=== PATIENT | female | born 1990 | race Caucasian/White ===

== ENCOUNTER 2017-10-01 17:07 | Emergency (ER) | END 2017-10-01 21:19 | disposition home or self-care (01) ==

== ENCOUNTER 2018-01-20 16:22 | Outpatient (CLI) | END 2018-01-20 18:59 | disposition home or self-care (01) ==

== ENCOUNTER 2018-02-17 11:56 | Outpatient (CLI) | END 2018-02-17 15:15 | disposition home or self-care (01) ==

== ENCOUNTER 2018-02-18 11:15 | Outpatient (CLI) | END 2018-02-18 13:22 | disposition home or self-care (01) ==

== ENCOUNTER 2018-03-03 11:46 | Outpatient (CLI) | payer OTHER ==
[~2018-03-03] VITALS: Ht 162.6 cm; Wt 93.0 kg
[~2018-03-03 11:46] MED LIST: FER325 PO; PNV11TAB PO
[2018-03-03 12:53] VITALS: Ht 162.6 cm; Wt 93.0 kg
[2018-03-03 12:54] VITALS: BP 118/80; PULSE 106; RESP 20
--- NOTE | 2018-03-03 15:19 | PN ---
Triage Information Date/Time Reason for visit: Elevated BP in clinic Weeks of Gestation 36 weeks /Para Diabetes: none Hypertention: none Objective Vital Signs Date Temp Pulse Resp B/P (MAP) Pulse Ox O2 O2 Flow FiO2 Time Delivery Rate 03/03/18 98.0 106 20 118/80 Room Air 12:54 (93) Heart Rate: 120's Heart Rate Comments Reactive Results/Medications Result Diagram: 03/03/18 1208 03/03/18 1208 Results 24 hrs Laboratory Tests Test 03/03/18 12:08 03/03/18 14:50 White Blood Count 10.1 Red Blood Count 3.76 L Hemoglobin 11.1 L Hematocrit 32.8 L Mean Corpuscular Volume 87.2 Mean Corpuscular Hemoglobin 29.5 Mean Corpuscular Hemoglobin Concent 33.8 Red Cell Distribution Width 14.1 Platelet Count 360 Mean Platelet Volume 8.3 Immature Granulocytes % 1.100 H Neutrophils % 67.7 Lymphocytes % 25.0 Monocytes % 4.7 Eosinophils % 1.0 Basophils % 0.5 Nucleated Red Blood Cells % 0.0 Immature Granulocytes # 0.110 H Neutrophils # 6.8 Lymphocytes # 2.5 Monocytes # 0.5 Eosinophils # 0.1 Basophils # 0.1 Nucleated Red Blood Cells # 0.0 Prothrombin Time 13.4 Prothrombin Time Ratio 1.0 INR International Normalized Ratio 1.01 Activated Partial Thromboplast Time 27.6 Fibrinogen 482.0 H Sodium Level 136 Potassium Level 4.0 Chloride Level 106 Carbon Dioxide Level 23 Anion Gap 7 Blood Urea Nitrogen 7 Creatinine 0.35 L Est Glomerular Filtrat Rate mL/min > 60 Glucose Level 87 Uric Acid 3.6 Calcium Level 9.3 Total Bilirubin 0.1 L Direct Bilirubin 0.00 Indirect Bilirubin 0.1 Aspartate Amino Transf (AST/SGOT) 14 L Alanine Aminotransferase (ALT/SGPT) 14 Alkaline Phosphatase 160 H Total Protein 6.8 Albumin 3.4 Globulin 3.40 H Albumin/Globulin Ratio 1.00 Urine Color YELLOW Urine Clarity CLEAR Urine pH 7.0 Urine Specific [place] 1.013 Urine Ketones TRACE A Urine Nitrite NEGATIVE Urine Bilirubin NEGATIVE Urine Urobilinogen NEGATIVE Urine Leukocyte Esterase NEGATIVE Urine Hemoglobin NEGATIVE Urine Glucose NEGATIVE Urine Total Protein NEGATIVE Disposition: Discharge Assessment/Plan No sign of preeclampsia REINA HAMILTON MD Mar 03, 2018 15:19
--- NOTE | 2018-03-03 15:36 | TRIAGE ---
OB Triage Datetime Report Generated by CPN: 03/03/2018 15:35 Datetime: 03/03/2018 12:48 Maternal Assessment Level of Consciousness: Fully Conscious DTR's/Clonus: DTRs 2+; No Clonus Headache: Denies Blurred Vision: No Respiratory Effort: Unlabored; Regular Rhythm; Equal Expansion Breath Sounds, Left: Clear and Equal Breath Sounds, Right: Clear and Equal Nausea/Vomiting: Denies RUQ Epigastric Pain: Denies Facial Edema: None Temperature Route: Axillary Fall Risk Assessment History of Falling: (0) No Secondary Diagnosis: (0) No Ambulatory Aid: (0) Bedrest/Nurse Assist IV Therapy: (0) No Gait: (0) Normal/Bedrest/Immobile Mental Status: (0) Oriented to Own Ability Fall Score: 0 Fall Risk Score Definition: No Risk: No action required Datetime: 03/03/2018 12:03 Maternal Assessment Level of Consciousness: Fully Conscious DTR's/Clonus: DTRs 2+ Headache: Denies Blurred Vision: No Nausea/Vomiting: Denies RUQ Epigastric Pain: Denies Facial Edema: None Labor Evaluation Frequency: none at this time Pattern: Normal: <= 5 Contractions in 10 Minutes Resting Tone [place]: Relaxed Heart Rate FHR Baseline Rate: 145 Monitor Mode: External US FHR Baseline Changes: No Baseline Change Variability: Moderate 6-25 bpm Accelerations: 15X15 Decelerations: None Category: Category I Pain Assessment Pain Scale: 0 Pain Presence: None/Denies Pain Goal: 0 Vaginal Exam Membrane Status: Intact Datetime: 03/03/2018 11:35 Time of Arrival: 03/03/2018 11:35 EGA: 36.3 Arrived By: Ambulatory Arrived From: Home Chief Complaint: elevated b/p in office Movement: Present Contractions: Denies/Absent Rupture of Membranes: Denies Vaginal Bleeding: None Vaginal Discharge: Denies Recent Sexual Intercouse: Denies Abdominal Trauma: Not Applicable Patient Complaints: None Initial Plan: efm,lab work and ob us Datetime: 02/18/2018 11:25 Fall Score: 0 Fall Risk Score Definition: No Risk: No action required Datetime: 02/18/2018 11:24 EGA: 34.4 Datetime: 02/17/2018 12:24 EGA: 34.3 Datetime: 02/17/2018 12:17 Fall Score: 0 Fall Risk Score Definition: No Risk: No action required Datetime: 01/20/2018 17:52 Fall Score: 0 Fall Risk Score Definition: No Risk: No action required Datetime: 01/20/2018 17:16 Fall Score: 0 Fall Risk Score Definition: No Risk: No action required Datetime: 01/20/2018 16:46 EGA: 30.3
== END 2018-03-03 15:30 | disposition home or self-care (01) ==
LOC: L-D 11:46 → OBT 11:46
PROVIDERS: ATTEND Obstetrics & Gynecology
DX: O26.893 Other specified pregnancy related conditions, third trimester (principal); R03.0 Elevated blood-pressure reading, without diagnosis of hypertension; Z3A.36 36 weeks gestation of pregnancy
CPT/HCPCS: 76818; 80053; 81003; 84560; 85025; 85384; 85610; 85730; Z7500; G0463

== ENCOUNTER 2018-03-21 09:53 | Inpatient (IN) | payer OTHER ==
[~2018-03-21] VITALS: Ht 162.6 cm; Wt 93.7 kg
[2018-03-21 09:58] VITALS: BP 111/76; PULSE 116; RESP 18; Ht 162.6 cm; Wt 93.7 kg
--- NOTE | 2018-03-21 12:39 | TRIAGE ---
OB Triage Datetime Report Generated by CPN: 03/21/2018 12:39 Datetime: 03/21/2018 12:18 Labor Evaluation Frequency: 0 Pattern: Normal: <= 5 Contractions in 10 Minutes Resting Tone [place]: Relaxed Heart Rate FHR Baseline Rate: 145 Monitor Mode: External US FHR Baseline Changes: No Baseline Change Variability: Moderate 6-25 bpm Accelerations: 15X15 Decelerations: None Category: Category I Datetime: 03/21/2018 11:10 Labor Evaluation Frequency: 0 Pattern: Normal: <= 5 Contractions in 10 Minutes Resting Tone [place]: Relaxed Heart Rate FHR Baseline Rate: 150 Monitor Mode: External US Variability: Moderate 6-25 bpm Accelerations: 15X15 Decelerations: Variable Category: Category II Datetime: 03/21/2018 10:10 Labor Evaluation Frequency: 0 Pattern: Normal: <= 5 Contractions in 10 Minutes Resting Tone [place]: Relaxed Heart Rate FHR Baseline Rate: 150 Monitor Mode: External US Variability: Moderate 6-25 bpm Accelerations: 15X15 Decelerations: None Category: Category I Datetime: 03/21/2018 10:09 Assessment Type: Triage Time of Arrival: 03/21/2018 09:50 EGA: 39.0 Arrived By: Ambulatory Arrived From: Home Chief Complaint: VAGINAL PRESSURE AND SOB Movement: Present Contractions: Denies/Absent Rupture of Membranes: Denies Vaginal Bleeding: None Vaginal Discharge: Denies Recent Sexual Intercouse: Denies Abdominal Trauma: Not Applicable Patient Complaints: Other Time Provider Notified: 03/21/2018 10:23 Provider Notified: dr dumont Initial Plan: NST Maternal Assessment Level of Consciousness: Fully Conscious DTR's/Clonus: DTRs 2+; No Clonus Headache: Denies Blurred Vision: No Respiratory Effort: Unlabored; Regular Rhythm; Equal Expansion Breath Sounds, Left: Clear and Equal Breath Sounds, Right: Clear and Equal Nausea/Vomiting: Denies RUQ Epigastric Pain: Denies Lower Extremities Edema: None Degree: None Upper Extremities Edema: None Degree: None Facial Edema: None Fall Risk Assessment History of Falling: (0) No Secondary Diagnosis: (0) No Ambulatory Aid: (0) Bedrest/Nurse Assist IV Therapy: (0) No Gait: (0) Normal/Bedrest/Immobile Mental Status: (0) Oriented to Own Ability Fall Score: 0 Fall Risk Score Definition: No Risk: No action required Datetime: 03/03/2018 12:48 Fall Score: 0 Fall Risk Score Definition: No Risk: No action required Datetime: 03/03/2018 11:35 EGA: 36.3 Datetime: 02/18/2018 11:25 Fall Score: 0 Fall Risk Score Definition: No Risk: No action required Datetime: 02/18/2018 11:24 EGA: 34.4 Datetime: 02/17/2018 12:24 EGA: 34.3 Datetime: 02/17/2018 12:17 Fall Score: 0 Fall Risk Score Definition: No Risk: No action required Datetime: 01/20/2018 17:52 Fall Score: 0 Fall Risk Score Definition: No Risk: No action required Datetime: 01/20/2018 17:16 Fall Score: 0 Fall Risk Score Definition: No Risk: No action required Datetime: 01/20/2018 16:46 EGA: 30.3
[2018-03-21] MEDS ORDERED: OXYTOCIN 30 UNITS/LR 500 ML IV SCH (13:30)
[2018-03-21] MEDS ORDERED: METHYLERGONOVINE 0.2 MG INJ IM PRN (13:30)
[2018-03-21] MEDS ORDERED: OXYTOCIN 30 UNITS/LR 500 ML IV PRN (13:30)
[2018-03-21] MEDS ORDERED: BUTORPHANOL 2 MG INJ IV PRN (13:30)
[2018-03-21] MEDS ORDERED: CARBOPROST 250 MCG INJ IM PRN (13:30)
[2018-03-21] MEDS ORDERED: LIDOCAINE 1% (MPF) 30 ML INJ INJ PRN (13:30)
[2018-03-21] MEDS ORDERED: MISOPROSTOL 200 MCG TAB PR PRN (13:30)
[2018-03-21] MEDS ORDERED: IBUPROFEN 600 MG TAB PO PRN (13:30)
[2018-03-21] MEDS: LACTATED RINGER'S 1,000 ML IV SCH ×3 (14:01→23:37)
[2018-03-21] MEDS: MISOPROSTOL 50 MCG CAPSULE PO SCH ×2 (16:15→22:01)
--- NOTE | 2018-03-21 19:27 | HP ---
Date/Time of Note Date/Time of Note DATE: 03/21/18 TIME: 19:24 OB - History Hx of Present Chief Complaint: pelvic pressure Estimated Due Date: Mar 28, 2018 : 2 Para: 1 Spontaneous : 0 Therapeutic : 0 Care: Good Care Ultrasounds: Normal mid trimester US Obstetrical Complications: None Medical Complications: None Past Family/Social History * Past Medical, Surgical, Family and Obstetric Histories reviewed from chart. GBS Status: Negative OB Admission Exam Vital Signs Vital Signs Vital Signs Date Temp Pulse Resp B/P (MAP) Pulse Ox O2 O2 Flow FiO2 Time Delivery Rate 03/21/18 97.7 116 18 111/76 Room Air 09:58 (88) Physical Exam HEENT: WNL Heart: Rhythm Normal Lungs: Clear, Equal Abdomen: WNL Extremities: Normal Reflexes: Normal Cervical Dilatation: None Effacement: 25% Station: -1 Membranes: Intact Heart Rate: 120's Accelerations: Accelerations Present Decelerations: No Decelerations Varibility: Moderate Last 72 hours Lab Results CBC & BMP 03/21/18 14:01 OB Assessment/Plan Reason for admission: induction of labor Other Assessment: oligohydramnios Plan: Induction Induction Method: per Misoprostol Protocol REINA HAMILTON MD Mar 21, 2018 19:27
[2018-03-22] MEDS ORDERED: FENTAnyl 2MCG/ML-ROPIV 0.2% 100 ML ONE (00:59)
[2018-03-22] MEDS: LACTATED RINGER'S 1,000 ML IV SCH ×2 (01:26→07:24)
--- NOTE | 2018-03-22 02:13 | PREAC ---
Date/Time of Note Date/Time of Note DATE: 03/22/18 TIME: 02:11 Anesthesia Eval and Record Evaluation Time Pre-Procedure Interview DATE: 03/22/18 TIME: 02:11 Age 27 Sex female NPO: 8 hrs Preoperative diagnosis IUP Planned procedure L&D Past Medical History Past Medical History: Includes GI: Morbid obesity Surgery & Anesthesia Issues No known issue Meds Anticoagulation: No Beta Rigo within 24 hr: No Reason Beta Rigo not given: Pt. not on B-Rigo Reported Medications [id number] ( 19) 1 Each Tablet, 1 TAB PO DAILY, TAB 02/17/18 Ferrous Sulfate* (Ferrous Sulfate*) 325 Mg Tabec, 325 MG PO BID, TAB 02/17/18 Current Medications Lactated Ringer's 1,000 ml @ 125 mls/hr Q8H IV Last administered on 03/22/18at 01:26; Admin Dose 125 MLS/HR; Start 03/21/18 at 13:25 Butorphanol Tartrate (Stadol) 2 mg Q2H PRN IV PAIN; Start 03/21/18 at 13:30 Lidocaine (Xylocaine 1% (Mpf)) 30 ml ONCE PRN INJ EPISIOTOMY; Start 03/21/18 at 13:30 Oxytocin/Lactated Ringer's 500 ml @ 500 mls/hr ONCE POST IV ; Start 03/21/18 at 13:30 Oxytocin/Lactated Ringer's 500 ml @ 125 mls/hr POST IV ; Start 03/21/18 at 13:30 Ibuprofen (Motrin) 600 mg ONCE PRN PO PAIN LEVEL 1-5; Start 03/21/18 at 13:30 Oxytocin/Lactated Ringer's 500 ml @ 0 mls/hr ONCE PRN IV VAGINAL BLEEDING; Start 03/21/18 at 13:30 Methylergonovine Maleate (Methergine) 0.2 mg ONCE PRN IM VAGINAL BLEEDING; Start 03/21/18 at 13:30 Carboprost Tromethamine (Hemabate) 250 mcg ONCE PRN IM VAGINAL BLEEDING; Start 03/21/18 at 13:30 Misoprostol (Cytotec) 1,000 mcg ONCE PRN IL VAGINAL BLEEDING; Start 03/21/18 at 13:30 Misoprostol (Cytotec 50 Mcg Capsule) 50 mcg Q4 PO Last administered on 03/21/18at 22:01; Admin Dose 50 MCG; Start 03/21/18 at 17:00 Meds reviewed: Yes Allergies Coded Allergies: No Known Drug Allergies (Verified Allergy, Mild, 02/06/10) Allergies Reviewed: Yes Labs/Studies Labs Reviewed: Reviewed by anesthesiologist Result Diagram: 03/21/18 1401 Laboratory Tests 03/21/18 14:01 Blood Bank Test 03/21/18 14:01 Antibody Screen NEGATIVE Blood Type A POSITIVE Rh Immune Globulin Candidate NO test: Positive Studies: ECG Pre-procedure Exam Last vitals Vital Signs Date Temp Pulse Resp B/P (MAP) Pulse Ox O2 O2 Flow FiO2 Time Delivery Rate 03/21/18 97.7 116 18 111/76 Room Air 09:58 (88) Airway: Adequate mouth opening, Adequate thyromental dist Mallampati: Mallampati II Teeth: Normal Lung: Normal Heart: Normal ASA Physical Status ASA physical status: 2 Emergency: None Planned Anesthetic Neuraxial: Epidural Planned Pain Management Epidural, Parenteral pain med Pre-operative Attestations Prior to commencing anesthesia and surgery, the patient was re-evaluated, there was verification of: *The patient's identity *The results of appropriate recent lab work and preoperative vital signs *The above evaluation not changing prior to induction *Anesthetic plan, risk benefits, alternative and complications discussed with patient/family; questions answered; patient/family understands, accepts and wishes to proceed. FREDDY INFANTE MD Mar 22, 2018 02:13
[2018-03-22] MEDS ORDERED: DIPHENHYDRAMINE 50 MG INJ IV PRN (02:30)
[2018-03-22] MEDS ORDERED: NALOXONE (0.4 MG/ML) INJ IV PRN (02:30)
[2018-03-22] MEDS ORDERED: ONDANSETRON 4 MG INJ IV PRN (02:30)
[2018-03-22] MEDS ORDERED: MINERAL OIL LIGHT 10 ML VIAL TOP ONE (08:00)
[2018-03-22] MEDS: FENTAnyl 2MCG/ML-ROPIV 0.2% 100 ML BAG EPI SCH ×2 (08:12→14:22)
[2018-03-22] MEDS: MISOPROSTOL 50 MCG CAPSULE PO SCH ×2 (09:00→13:00)
[2018-03-22] MEDS: DEXTROSE 5%-LR 1,000 ML IV SCH ×2 (11:56→19:00)
[2018-03-22] MEDS ORDERED: CEFAZOLIN 2 GM/50 ML (PMX) 50 ML IVPB ONE ×2 (16:25→16:30)
--- NOTE | 2018-03-22 17:08 | LDN ---
Date/Time of Note Date/Time of Note DATE: 03/22/18 TIME: 17:02 Delivery Summary over intact perineum. Placenta and membranes delivered spontaneously. Uterine atony noted. Cytotec, Hemabate and Methergine given. Using large curette, sharp curettage was performed. Bakri baloon was plcad and 420 ml of NS infused. Bakri balloon spontaneously came out. Uterus became firm. Weeks of Gestation 39 weeks Placenta Delivered: Spontaneously Meconium: Light Episiotomy: No Perineal laceration: 1 Laceration repair: First degree perineal laceration repaired with 3-0 Vicryl. Anesthesia type: Epidural Estimated blood loss: 500 Sponge & Needle done & correct: Yes All needle counts correct: Yes Any foreign bodies felt in the: No Delivery Information Sex Sex: male Apgars 1 Minute: 8 5 Minute: 9 Suctioning Nose & mouth suctioned at giuseppe: No Delee suction performed: No Umbilical Cord Umbilical cord with: 3 Vessels Cord presentations: no nuchal cord Cord Blood was obtained: Yes Mother & Baby Disposition Disposition Mom & Baby to Maternity; Good: Yes REINA HAMILTON MD Mar 22, 2018 17:08
[2018-03-22] MEDS: OXYTOCIN 30 UNITS/LR 500 ML IV SCH ×2 (17:37→19:59)
[2018-03-22] MEDS ORDERED: METHYLERGONOVINE 0.2 MG INJ IM PRN (20:00)
[2018-03-22] MEDS ORDERED: WITCH HAZEL/GLYCERIN PAD PR PRN (20:00)
[2018-03-22] MEDS ORDERED: MISOPROSTOL 200 MCG TAB PR PRN (20:00)
[2018-03-22] MEDS ORDERED: ACETAMINOPHEN 325 MG TAB PO PRN (20:00)
[2018-03-22] MEDS ORDERED: OXYTOCIN 30 UNITS/LR 500 ML IV PRN (20:00)
[2018-03-22] MEDS ORDERED: HYDROCODONE/APAP (5/325) TAB PO PRN (20:00)
[2018-03-22] MEDS ORDERED: DIBUCAINE 1% 30 GM OINT TOP PRN (20:00)
[2018-03-22] MEDS ORDERED: BENZOCAINE 20% 56 ML SPRAY TOP PRN (20:00)
[2018-03-22] MEDS ORDERED: CARBOPROST 250 MCG INJ IM PRN (20:00)
[2018-03-22 22:00] VITALS: BP 121/78; PULSE 103; RESP 20
[2018-03-22] MEDS: SENNA/DOCUSATE NA (8.6MG/50MG) TAB PO SCH (22:07)
[2018-03-22] MEDS: IBUPROFEN 600 MG TAB PO SCH (23:38)
[2018-03-22] MEDS: LACTATED RINGER'S 1,000 ML IV* SCH (23:38)
[2018-03-23] MEDS ORDERED: CEFAZOLIN 2 GM/50 ML (PMX) 50 ML IVPB ONE (01:00)
[2018-03-23] MEDS: LACTATED RINGER'S 1,000 ML IV* SCH (03:43)
[2018-03-23 04:18] VITALS: BP 120/64; PULSE 75; RESP 20
[2018-03-23] MEDS: IBUPROFEN 600 MG TAB PO SCH ×3 (05:36→17:42)
[2018-03-23 07:40] VITALS: BP 94/64; PULSE 82; RESP 18
[2018-03-23] MEDS: SENNA/DOCUSATE NA (8.6MG/50MG) TAB PO SCH ×2 (09:00→20:39)
--- NOTE | 2018-03-23 13:47 | QN ---
Documentation Comment No complaint Afebrile VSS Fundus firm Lochia scant Hgb 10 Stable Continue with present care. REINA HAMILTON MD Mar 23, 2018 13:47
[2018-03-23 14:46] VITALS: BP 106/66; PULSE 81; RESP 20
[2018-03-23 19:40] VITALS: BP 109/64; PULSE 73; RESP 19
[2018-03-24] MEDS: IBUPROFEN 600 MG TAB PO SCH ×4 (00:09→17:42)
[2018-03-24 03:10] VITALS: BP 113/76; PULSE 78; RESP 17
[2018-03-24 08:20] VITALS: BP 109/56; PULSE 79; RESP 18
[2018-03-24] MEDS ORDERED: DIPHTH/TET/ACEL PERTUSS (ADULT) 0.5 ML VIAL IM* ONE (09:00)
[2018-03-24] MEDS: SENNA/DOCUSATE NA (8.6MG/50MG) TAB PO SCH (09:00)
--- NOTE | 2018-03-24 12:23 | DS ---
Date/Time of Note Date/Time of Note DATE: 03/24/18 TIME: 12:22 Obstetrical Discharge Record Final Diagnosis Final Diagnosis: Term delivered Other Final Diagnosis hemorrhage Vaginal Delivery Obstetrical Delivery: Spontaneous Condition on Discharge Physical Assessment Voiding: Yes Bowel Movement: Yes Breast: Soft, non-tender, Filling Fundus: Firm Calf Tenderness: No Patient Condition: Stable REINA HAMILTON MD Mar 24, 2018 12:23
--- NOTE | 2018-03-25 07:46 | PAC ---
Date/Time of Note Date/Time of Note DATE: 03/25/18 TIME: 07:46 Post-Anesthesia Notes Post-Anesthesia Note Last documented vital signs Vital Signs Date Temp Pulse Resp B/P (MAP) Pulse Ox O2 O2 Flow FiO2 Time Delivery Rate 03/24/18 98.1 79 18 109/56 08:20 (73) 03/24/18 Room Air 03:10 Activity: WNL Respiratory function: WNL Cardiovascular function: WNL Mental status: Baseline Pain reasonably controlled: Yes Hydration appropriate: Yes Nausea/Vomiting absent: Yes Comments BP:111/56, pulse:89, spo2:100%, T:98,8 FREDDY INFANTE MD Mar 25, 2018 07:46
== END 2018-03-24 19:00 | disposition home or self-care (01) | DRG 806 ==
LOC: OBT 09:53 → L-D 09:53 → OBT 12:40 → L-D 13:07 → PP1 03-22 21:59
PROVIDERS: ADMIT Obstetrics & Gynecology; ATTEND Obstetrics & Gynecology
PROC: 3E0P7GC Introduction of Other Therapeutic Substance into Female Reproductive, Via Natural or Artificial Opening (ICD-10-PCS; 2018-03-21)
PROC: 4A1HXCZ Monitoring of Products of Conception, Cardiac Rate, External Approach (ICD-10-PCS; 2018-03-21)
PROC: 10E0XZZ Delivery of Products of Conception, External Approach (ICD-10-PCS; principal; 2018-03-22)
PROC: 0U7C7ZZ Dilation of Cervix, Via Natural or Artificial Opening (ICD-10-PCS; 2018-03-22)
PROC: 0HQ9XZZ Repair Perineum Skin, External Approach (ICD-10-PCS; 2018-03-22)
PROC: 3E0234Z Introduction of Serum, Toxoid and Vaccine into Muscle, Percutaneous Approach (ICD-10-PCS; 2018-03-23)
PROC: 3E0234Z Introduction of Serum, Toxoid and Vaccine into Muscle, Percutaneous Approach (ICD-10-PCS; 2018-03-24)
DX: O41.03X0 Oligohydramnios, third trimester, not applicable or unspecified (principal); O72.1 Other immediate postpartum hemorrhage; Z37.0 Single live birth; O70.0 First degree perineal laceration during delivery; Z3A.39 39 weeks gestation of pregnancy; Z23 Encounter for immunization
CPT/HCPCS: 62319; 76818; 85025; 85384; 85610; 85730; 86592; 86850; 86900; 86901; 86920; 87340; 90686; 90715; 99464; G0463; J0690; J2210; J2405; J2590; J3010; J7120; J7121